=== PATIENT | male | born 1990 | race African-American/Black ===

== ENCOUNTER 2018-10-06 16:15 | Emergency (ER) | payer SELFPAY ==
[~2018-10-06] VITALS: Ht 160 cm; Wt 56.0 kg
[2018-10-06 17:38] VITALS: BP 117/63
[2018-10-06] MEDS ORDERED: SODIUM CHLORIDE 0.9% 1,000 ML IV ONE (18:16)
[2018-10-06] MEDS ORDERED: LORAZEPAM 2MG/ML CPJ IV ONE (18:30)
== END 2018-10-06 19:53 | disposition home or self-care (01) ==
LOC: ER 16:15
DX: R06.02 Shortness of breath (principal); R06.00 Dyspnea, unspecified; F15.10 Other stimulant abuse, uncomplicated; F17.200 Nicotine dependence, unspecified, uncomplicated
CPT/HCPCS: 71045; 96374; 99283; J2060; J7030

== ENCOUNTER 2022-08-05 13:54 | Emergency (ER) | payer MEDICAID ==
[~2022-08-05] VITALS: Ht 170.2 cm; Wt 82.0 kg
[2022-08-05 14:02] VITALS: BP 130/94
[2022-08-05] MEDS ORDERED: DOLU1TAB MT (16:15)
== END 2022-08-05 16:24 | disposition home or self-care (01) ==
LOC: ER 13:54
DX: Z76.0 Encounter for issue of repeat prescription (principal); F15.10 Other stimulant abuse, uncomplicated
CPT/HCPCS: 99281

== ENCOUNTER 2023-01-08 19:37 | Emergency (ER) | payer MEDICAID, OTHER ==
[~2023-01-08] VITALS: Ht 170.2 cm; Wt 77.0 kg
[~2023-01-08 19:37] MED LIST: DOLU1TAB MT
[2023-01-08 19:43] VITALS: BP 121/83; PULSE 93; RESP 16; TEMP 98.7; O2SAT 99
[2023-01-08] MEDS ORDERED: DOLU1TAB MT (20:03)
[2023-01-08] MEDS ORDERED: DEXT15LI MT (20:03)
== END 2023-01-08 20:16 | disposition home or self-care (01) ==
LOC: ER 19:37
DX: R05.3 Chronic cough (principal); F15.90 Other stimulant use, unspecified, uncomplicated; Z76.0 Encounter for issue of repeat prescription
CPT/HCPCS: 99283

== ENCOUNTER 2023-05-03 15:06 | Emergency (ER) | payer MEDICAID, OTHER ==
[~2023-05-03] VITALS: Ht 175.3 cm; Wt 81.0 kg
[~2023-05-03 15:06] MED LIST changes: +DEXT15LI MT
[2023-05-03 15:07] VITALS: BP 114/77; TEMP 98.1; O2SAT 97
[2023-05-03 15:08] VITALS: PULSE 93; RESP 18
[2023-05-03] MEDS ORDERED: EMTR1TAB12 MT (16:03)
[2023-05-03] MEDS ORDERED: ABAC1TAB14 MT (16:03)
== END 2023-05-03 21:20 | disposition left against medical advice (07) ==
LOC: ER 15:06
DX: R69 Illness, unspecified (principal); F15.10 Other stimulant abuse, uncomplicated; Z79.899 Other long term (current) drug therapy; Z76.0 Encounter for issue of repeat prescription
CPT/HCPCS: 99281